=== PATIENT | male | born 1965 ===

== ENCOUNTER 2018-03-08 14:02 | Inpatient (IN) | payer MEDICAID, OTHER ==
[2018-03-08 14:11] VITALS: BMI 30.7
[2018-03-08] MEDS ORDERED: Sodium Chloride 0.9% 1,000 ML IV STA (14:47)
[2018-03-08] MEDS ORDERED: Vancomycin 1 GM 1 GM/250 ML BAG IVPB ONE (14:58)
[2018-03-08 15:02] LABS: BASO # 0.1 K/uL (0.0-0.2); BASO % 0.6 % (0.0-2.0); EOS # 0.2 K/uL (0.0-0.7); HEMOGLOBIN 14.7 g/dL (12.0-18.0); LYMPH # 2.3 K/uL (1.0-4.3); LYMPH % 19.1 % (20.0-40.0); MEAN CELL VOLUME 88.2 fL (80.0-94.0); MEAN CORPUSCULAR HEMOGLOBIN 29.2 pg (27.0-31.0); MEAN CORPUSCULAR HGB CONC 33.1 g/dL (33.0-37.0); MEAN PLATELET VOLUME 9.7 fL (7.2-11.7); MONO # 0.9 K/uL (0.0-0.8); MONO % 7.5 % (0.0-10.0); NEUT # 8.4 K/uL (1.8-7.0); NEUT % 70.8 % (50.0-75.0); RBC 5.02 Mil/uL (4.40-5.90); RED CELL DISTRIBUTION WIDTH 14.4 % (11.5-14.5); WHITE BLOOD COUNT 11.8 K/uL (4.8-10.8)
[2018-03-08 15:15] LABS: ALB/GLOB RATIO 1.2 (1.0-2.1); ALBUMIN 4.4 g/dL (3.5-5.0); ALT/SGPT 19 U/L (21-72); AST/SGOT 22 U/L (17-59); BLOOD UREA NITROGEN 20 mg/dL (9-20); CALCIUM 8.7 mg/dl (8.6-10.4); GFR NON-AFRICAN AMERICAN > 60
[2018-03-08] MEDS ORDERED: Iodixanol 320 MG/ML 100 ML BOTTLE IV ONE (16:32)
--- NOTE | 2018-03-08 18:12 | CT ---
Date of service: 03/08/2018 PROCEDURE: CT NECK WITH CONTRAST HISTORY: swelling/drainage behind right ear, neck COMPARISON: None available. TECHNIQUE: CT of the neck with intravenous contrast. Coronal and sagittal reformats generated. Radiodense marker localizes site of pathology related to right periareolar skin. Intravenous contrast dose: Visipaque 320, 100 cc Radiation dose: Total exam DLP = 401.71 mGy-cm. This CT exam was performed using one or more of the following dose reduction techniques: Automated exposure control, adjustment of the mA and/or kV according to patient size, and/or use of iterative reconstruction technique. FINDINGS: NASOPHARYNX: Unremarkable. SUPRAHYOID NECK: Dermal thickening is appreciated at the inferior right periareolar region with prominent subcutaneous reaction. Lucency of the dermis may indicate early ulcer formation with this lucency communicating with trace fluid in the subcutaneous fat superficial to the superficial portion right parotid gland and deep to the dermis. This may reflect residual abscess material approximately 2 cm x 4 mm. Otherwise unremarkable oropharynx, oral cavity, parapharyngeal space and retropharyngeal space. INFRAHYOID NECK: Unremarkable larynx, hypopharynx, and supraglottic space. Vocal cords intact. MASS: None. GLANDS: Parotid and submandibular glands unremarkable. Normal size thyroid gland, without nodule. LYMPH NODES: Moderate bilateral jugular digastric and right greater than left posterior triangle lymphadenopathy appreciated. Minimal right supraclavicular fossa lymphadenopathy. Lymphadenopathy is manifest not by grossly enlarged lymph nodes by numerous small lymph nodes with the largest measuring only 1.5 cm in the right periparotid space. CERVICAL SPINE: No fracture or focal lesion. VASCULAR STRUCTURES: Unremarkable. OTHER FINDINGS: None. IMPRESSION: Bilateral neck lymphadenopathy greater the right than left due to prominent inferior right periauricular cellulitis with small subdermal abscess extending into the dermis minimally.
--- NOTE | 2018-03-08 18:34 | C.PDOC ---
History Of Present Illness 52 year old male presents to the ED for evaluation of painful and swollen pimple behind right ear. Reports that he squeezed a small pimple behind his right ear 2 days ago but swelling increased. Notes it is painful to move neck. Denies any fever or chills. Time Seen by Provider: 03/08/18 14:33 Chief Complaint (Nursing): Abnormal Skin Integrity History Per: Patient History/Exam Limitations: no limitations Onset/Duration Of Symptoms: Days (2) Current Symptoms Are (Timing): Still Present Location Of Injury: Right: Neck (swollen and painful pimple ) Quality Of Symptoms: Painful, Swollen Past Medical History Reviewed: Historical Data, Nursing Documentation, Vital Signs Vital Signs: Last Vital Signs Temp 97.7 F 03/08/18 14:14 Pulse 74 03/08/18 16:55 Resp 18 03/08/18 16:55 BP 119/78 03/08/18 16:55 Pulse Ox 99 03/08/18 16:55 - Medical History PMH: No Chronic Diseases Surgical History: No Surg Hx Family History: States: No Known Family Hx - Social History Hx Alcohol Use: No Hx Substance Use: No - Immunization History Hx Tetanus Toxoid Vaccination: Yes Hx Influenza Vaccination: No Hx Pneumococcal Vaccination: No Review Of Systems Except As Marked, All Systems Reviewed And Found Negative. Constitutional: Negative for: Fever, Chills Skin: Positive for: Other (swollen and painful pimple behind right ear) Physical Exam - Physical Exam Appears: Non-toxic, No Acute Distress Skin: Warm, Dry, Other (dark ulceration to post auricular area (+) erythema (+) central induration extending to right lateral neck area and occipital area ) Head: Normacephalic Eye(s): bilateral: Normal Inspection, PERRL, EOMI Ear(s): Bilateral: Normal Nose: Normal Oral Mucosa: Moist Neck: Supple Chest: Symmetrical Cardiovascular: Rhythm Regular Respiratory: Normal Breath Sounds, No Rales, No Rhonchi, No Wheezing Neurological/Psych: Oriented x3, Normal Speech Gait: Steady ED Course And Treatment - Laboratory Results Result Diagrams: 03/08/18 14:56 03/08/18 14:56 O2 Sat by Pulse Oximetry: 99 (RA) Pulse Ox Interpretation: Normal - CT Scan/US CT soft tissue necl Other Rad Studies (CT/US): Read By Radiologist, Radiology Report Reviewed CT/US Interpretation: Accession No. : [id number]. Patient Name / ID : LOLIS BONNER / [id number]. Exam Date : 03/08/2018 17:46:40 ( Approved ). Study Comment : Sex / Age : M / 52Y. Creator : Bravo Azul MD. Dictator : Bravo Azul MD. Hot Braider : Pta : Bravo Azul MD. Approver2 : Report Date : 03/08/2018 18:08:03. My Comment : . Date of service: 03/08/2018. PROCEDURE: CT NECK WITH CONTRAST. HISTORY: swelling/drainage behind right ear, neck. COMPARISON: None available. TECHNIQUE: CT of the neck with intravenous contrast. Coronal and sagittal reformats generated. Radiodense marker localizes site of pathology related to right periareolar skin. Intravenous contrast dose: Visipaque 320, 100 cc. Radiation dose: Total exam DLP = 401.71 mGy-cm. This CT exam was performed using one or more of the following dose reduction techniques: Automated exposure control, adjustment of the mA and/or kV according to patient size, and/or use of iterative reconstruction technique. FINDINGS: NASOPHARYNX: Unremarkable. SUPRAHYOID NECK: Dermal thickening is appreciated at the inferior right periareolar region with prominent subcutaneous reaction. Lucency of the dermis may indicate early ulcer formation with this lucency communicating with trace fluid in the subcutaneous fat superficial to the superficial portion right parotid gland and deep to the dermis. This may reflect residual abscess material approximately 2 cm x 4 mm. Otherwise unremarkable oropharynx, oral cavity, parapharyngeal space and retropharyngeal space. INFRAHYOID NECK: Unremarkable larynx, hypopharynx, and supraglottic space. Vocal cords intact. MASS: None. GLANDS: Parotid and submandibular glands unremarkable. Normal size thyroid gland, without nodule. LYMPH NODES: Moderate bilateral jugular digastric and right greater than left posterior triangle lymphadenopathy appreciated. Minimal right supraclavicular fossa lymphadenopathy. Lymphadenopathy is manifest not by grossly enlarged lymph nodes by numerous small lymph nodes with the largest measuring only 1.5 cm in the right periparotid space. CERVICAL SPINE: No fracture or focal lesion. VASCULAR STRUCTURES: Unremarkable. OTHER FINDINGS: None. IMPRESSION: Bilateral neck lymphadenopathy greater the right than left due to prominent inferior right periauricular cellulitis with small subdermal abscess extending into the dermis minimally. Progress Note: Blood and wound cultures collected and sent to lab for analysis. Patient treated with Vancomycin. Case was d/w who accepted patient to his service for an admission. 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 - Scribe Statement The provider has reviewed the documentation as recorded by the Venus Wheeler All medical record entries made by the Adityaibaurelia were at my direction and personally dictated by me. I have reviewed the chart and agree that the record accurately reflects my personal performance of the history, physical exam, medical decision making, and the department course for this patient. I have also personally directed, reviewed, and agree with the discharge instructions and disposition. Decision To Admit - Pt Status Changed To: Hospital Disposition Of: Inpatient - Admit Certification Admit to Inpatient:: After my assessment, the patient will require hospitalization for at least two midnights. This is because of the severity of symptoms shown, intensity of services needed, and/or the medical risk in this patient being treated as an outpatient. - InPatient: Physician Admission Certification: I certify that this patient requires 2 or more midnights of care for the following reason:: will need IV antibiotics for more than 2 days - . Bed Request Type: Regular Admitting Physician: Nate Nunez Patient Diagnosis: Cellulitis and abscess of neck
--- NOTE | 2018-03-08 20:13 | CP.PCM.HP ---
<Layla Keys - Last Filed: 03/08/18 21:14> History of Present Illness - History of Present Illness History of Present Illness: PGY-1 Layla Keys D.O. H&P for Dr. Nunez's service (hospitalists): Patient is a 52 yo male with no known PMH who presents who a R facial abscess. Patient states that he noticed a fluid-filled bump at the angle of his R jaw on Saturday. He pricked it open with his nail. 2 days ago, he started feeling a burning sensation and squeezed the bump, which had grown significantly in size over the week. Beige odorless discharge came out. The patient describes significant pain, and he has been unable to lay down or touch the R side of his face since yesterday. Patient states this is the first time he has had anything like this. Last time he saw a doctor was in 2010. He denies fevers and chills. He denies LEES, trouble with chewing or swallowing, tooth pain, hearing changes or tinnitus. 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 Occasional alcohol use- 2-3 shots of whiskey every few months Former smoker- 25 pack years, quit 2006 Formerly used cocaine, quit in 2006 Denies IVDA PMD: none Present on Admission - Present on Admission Any Indicators Present on Admission: No History of DVT/PE: No History of Uncontrolled Diabetes: No Urinary Catheter: No Decubitus Ulcer Present: No History Surgical Site Infection Following: None Review of Systems - Constitutional Constitutional: absent: Chills, Fever, Headache - EENT Eyes: absent: Change in Vision Ears: absent: Decreased Hearing, Ear Discharge, Ear Pain, Tinnitus, Abnormal Hearing, Dizziness Nose/Mouth/Throat: As Per HPI, Facial Pain. absent: Nasal Congestion, Dental Pain, Mouth Lesions, Mouth Pain, Sore Throat, Throat Swelling - Cardiovascular Cardiovascular: absent: Chest Pain, Diaphoresis, Dyspnea - Respiratory Respiratory: absent: Cough, Dyspnea - Gastrointestinal Gastrointestinal: absent: Abdominal Pain, Constipation, Diarrhea, Nausea, Vomiting - Genitourinary Genitourinary: absent: Dysuria, Hematuria - Musculoskeletal Musculoskeletal: absent: Arthralgias, Numbness, Tingling - Integumentary Integumentary: As Per HPI, Erythema, Lesions, Swelling - Neurological Neurological: absent: Focal Weakness, Paresthesias, Tremor, Weakness - Psychiatric Psychiatric: absent: Anxiety, Depression - Endocrine Endocrine: absent: Fatigue, Palpitations - Hematologic/Lymphatic Hematologic: absent: Easy Bleeding, Easy Bruising, Lymphadenopathy Past Patient History - Infectious Disease Hx of Infectious Diseases: None - Past Medical History & Family History Past Medical History?: Yes Past Family History: Reviewed and not pertinent - Past Social History Smoking Status: Former Smoker (25 pk yrs, quit 2006) Chewing Tobacco Use: No Cigar Use: No Alcohol: Occasional Drugs: Cocaine (former- last use 2006) Home Situation {Lives}: Alone - PSYCHIATRIC Hx Substance Use: No - SURGICAL HISTORY Hx Surgeries: No - ANESTHESIA Hx Anesthesia: No Meds Allergies/Adverse Reactions: Allergies Allergy/AdvReac Type Severity Reaction Status Date / Time No Known Allergies Allergy Verified 03/08/18 14:32 Physical Exam - Constitutional Appears: Non-toxic, No Acute Distress - Head Exam Head Exam: ATRAUMATIC - Eye Exam Eye Exam: EOMI, Normal appearance, PERRL - ENT Exam ENT Exam: Mucous Membranes Moist Additional comments: preauricular abscess approx 3x3 cm fluctuant area with surround erythema and purulent discharge - Neck Exam Neck exam: Negative for: Lymphadenopathy, Tenderness - Respiratory Exam Respiratory Exam: Clear to Auscultation Bilateral, NORMAL BREATHING PATTERN. absent: Accessory Muscle Use, Respiratory Distress - Cardiovascular Exam Cardiovascular Exam: REGULAR RHYTHM, +S1, +S2. absent: Diastolic murmur, Systolic Murmur - GI/Abdominal Exam GI & Abdominal Exam: Normal Bowel Sounds, Soft. absent: Tenderness - Rectal Exam Rectal Exam: Deferred - Extremities Exam Extremities exam: Positive for: normal inspection, pedal pulses present. Negative for: pedal edema, tenderness - Back Exam Back exam: NORMAL INSPECTION - Neurological Exam Neurological exam: Alert, CN II-XII Intact, Oriented x3 - Psychiatric Exam Psychiatric exam: Normal Affect, Normal Mood - Skin Skin Exam: Dry, Intact, Normal Color, Warm - Additional Findings Additional findings: [address] in L axilla No neck or groin LNs palpable Results - Vital Signs Recent Vital Signs: Last Vital Signs Temp 97.7 F 03/08/18 14:14 Pulse 74 03/08/18 16:55 Resp 18 03/08/18 16:55 BP 119/78 03/08/18 16:55 Pulse Ox 99 03/08/18 18:54 - Labs Result Diagrams: 03/08/18 14:56 03/08/18 14:56 Labs: Laboratory Results - last 24 hr 03/08/18 03/08/18 14:56 14:56 WBC 11.8 H RBC 5.02 Hgb 14.7 Hct 44.3 MCV 88.2 MCH 29.2 MCHC 33.1 RDW 14.4 Plt Count 285 MPV 9.7 Neut % (Auto) 70.8 Lymph % (Auto) 19.1 L [place] % (Auto) 7.5 Eos % (Auto) 2.0 Baso % (Auto) 0.6 Neut # (Auto) 8.4 H Lymph # (Auto) 2.3 [place] # (Auto) 0.9 H Eos # (Auto) 0.2 Baso # (Auto) 0.1 Sodium 138 Potassium 3.8 Chloride 102 Carbon Dioxide 23 Anion Gap 17 BUN 20 Creatinine 1.0 Est GFR ( Amer) > 60 Est GFR (Non-Af Amer) > 60 Random Glucose 102 Calcium 8.7 Total Bilirubin 0.6 AST 22 ALT 19 L Alkaline Phosphatase 136 H Total Protein 8.0 Albumin 4.4 Globulin 3.6 Albumin/Globulin Ratio 1.2 Assessment & Plan - Assessment and Plan (Free Text) Assessment: Patient is a 52 yo male who no known PMH who presents with preauricular abscess of 1 week duration. Plan: Abscess, inferior preauricular, acute - Afebrile - WBC 11.8 - Wound Cx pending - Blood Cx pending - CT neck soft tissue: Bilateral neck lymphadenopathy greater the right than left due to prominent inferior right periauricular cellulitis with small subdermal abscess extending into the dermis minimally. - Tylenol 650 mg PO Q6H PRN - Toradol 15 mg IV Q6H PRN - Clindamycin 600 mg IV Q6H PRN - Surgery consulted ([facility]) Lymphadenopathy - CT neck soft tissue: Moderate bilateral jugular digastric and right greater than left posterior triangle lymphadenopathy appreciated. Minimal right supraclavicular fossa lymphadenopathy. Lymphadenopathy is manifest not by grossly enlarged lymph nodes by numerous small lymph nodes with the largest measuring only 1.5 cm in the right periparotid space. - CT chest/abd/pelvis pending Ppx: VTE: heparin 5000 units SC Q8H, SCDs GI: PTX 40 mg IV daily Diet: Heart healthy Code status: full code Case was discussed with attending, Dr. Nunez. <Nate Nunez - Last Filed: 03/09/18 07:14> Results - Vital Signs Recent Vital Signs: Last Vital Signs Temp 98.8 F 03/09/18 00:02 Pulse 76 03/09/18 00:02 Resp 20 03/09/18 00:02 BP 114/73 03/09/18 00:02 Pulse Ox 97 03/09/18 00:02 - Labs Result Diagrams: 03/08/18 14:56 03/08/18 14:56 Labs: Laboratory Results - last 24 hr 03/08/18 03/08/18 03/08/18 14:32 14:56 14:56 WBC 11.8 H RBC 5.02 Hgb 14.7 Hct 44.3 MCV 88.2 MCH 29.2 MCHC 33.1 RDW 14.4 Plt Count 285 MPV 9.7 Neut % (Auto) 70.8 Lymph % (Auto) 19.1 L [place] % (Auto) 7.5 Eos % (Auto) 2.0 Baso % (Auto) 0.6 Neut # (Auto) 8.4 H Lymph # (Auto) 2.3 [place] # (Auto) 0.9 H Eos # (Auto) 0.2 Baso # (Auto) 0.1 Sodium 138 Potassium 3.8 Chloride 102 Carbon Dioxide 23 Anion Gap 17 BUN 20 Creatinine 1.0 Est GFR ( Amer) > 60 Est GFR (Non-Af Amer) > 60 POC Glucose (mg/dL) 89 Random Glucose 102 Calcium 8.7 Total Bilirubin 0.6 AST 22 ALT 19 L Alkaline Phosphatase 136 H Total Protein 8.0 Albumin 4.4 Globulin 3.6 Albumin/Globulin Ratio 1.2 Attending/Attestation - Attestation I have personally seen and examined this patient.: Yes I have fully participated in the care of the patient.: Yes I have reviewed all pertinent clinical information: Yes Notes (Text): Assessment * Right subauricular abscess with induration * LN aris, b/l, left axilla Plan * Clindamycin iv, prn toradol to shrink * Surgery consult may need drainage once shrinks * W/u for lymphadenopathy to start with CT chest abd/pelvis * See orders for detail.
[2018-03-08 22:00] VITALS: RESP 20
--- NOTE | 2018-03-08 23:06 | CP.PCM.CON ---
<Thomas Giang - Last Filed: 03/08/18 23:04> History of Present Illness - History of Present Illness History of Present Illness: General Surgery Consult Re: R inferior periauricular abscess HPI: 52M presents with a R inferior periauricular abscess. Saturday he noticed a pimple at the angle of his R jaw. He picked it open. , after squeezing the lump several other times, he started feeling a burning sensation and the bump had grown in size. He began to express weathers odorless fluid. He reports it is now very painful, and he has been unable to lay down or touch the R side of his face since yesterday. This is the first time he has had anything like this. Denies fevers, chills, LEES, trouble with chewing or swallowing, tooth pain, hearing changes/tinnitus, eye pain, lacrimation, radiating jaw pain, foul taste in mouth. No other complaints. PMH: Denies PSH: Denies FH: DM in mother SH: Former smoker- 25 pack years, quit 2006. Rare EtOH, Formerly used cocaine, quit in 2006 All: NKDA Meds: Denies Review of Systems - Review of Systems All systems: reviewed and no additional remarkable complaints except (as per HPI ) Past Patient History - Infectious Disease Hx of Infectious Diseases: None - Past Medical History & Family History Past Medical History?: Yes - Past Social History Smoking Status: Former Smoker - CARDIAC Hx Cardiac Disorders: No - PULMONARY Hx Respiratory Disorders: No - NEUROLOGICAL Hx Neurological Disorder: No - HEENT Hx HEENT Problems: No - RENAL Hx Chronic Kidney Disease: No - ENDOCRINE/METABOLIC Hx Endocrine Disorders: No - HEMATOLOGICAL/ONCOLOGICAL Hx Blood Disorders: No - INTEGUMENTARY Hx Dermatological Problems: No - MUSCULOSKELETAL/RHEUMATOLOGICAL Hx Musculoskeletal Disorders: No Hx Falls: No - GASTROINTESTINAL Hx Gastrointestinal Disorders: No - GENITOURINARY/GYNECOLOGICAL Hx Genitourinary Disorders: No - PSYCHIATRIC Hx Psychophysiologic Disorder: No Hx Substance Use: Yes - SURGICAL HISTORY Hx Surgeries: No - ANESTHESIA Hx Anesthesia: No Meds Allergies/Adverse Reactions: Allergies Allergy/AdvReac Type Severity Reaction Status Date / Time No Known Allergies Allergy Verified 03/08/18 14:32 - Medications Medications: Current Medications Acetaminophen (Tylenol 325mg Tab) 650 mg PO Q6 PRN PRN Reason: Fever >100.4 F or mild pain Heparin Sodium (Porcine) (Heparin) 5,000 units SC Q8 [facility] Last Admin: 03/08/18 22:37 Dose: 5,000 units Clindamycin Phosphate 600 mg/ (Sodium Chloride) 54 mls @ 100 mls/hr IVPB Q6H [facility]; Protocol Last Admin: 03/08/18 22:30 Dose: 100 mls/hr Influenza Virus Vaccine (Fluzone Quad [id number]) 60 mcg IM .ONCE ONE Stop: 03/10/18 10:01 Ketorolac Tromethamine (Toradol) 15 mg IVP Q6 PRN PRN Reason: Pain, moderate (4-7) Pantoprazole Sodium (Protonix Inj) 40 mg IVP DAILY [facility] Pneumococcal Polyvalent Vaccine (Pneumovax 23 Vaccine) 0.5 ml IM .ONCE ONE Stop: 03/10/18 10:01 Physical Exam - Constitutional Appears: Non-toxic, No Acute Distress - Head Exam Head Exam: ATRAUMATIC, NORMOCEPHALIC - Eye Exam Eye Exam: EOMI. absent: Scleral icterus - ENT Exam ENT Exam: Mucous Membranes Moist Additional comments: R inferior periauricular abscess. draining, TTP. Erythema 6cm x 6cm - Neck Exam Neck exam: Negative for: Lymphadenopathy, Tenderness - Respiratory Exam Respiratory Exam: NORMAL BREATHING PATTERN. absent: Respiratory Distress - GI/Abdominal Exam GI & Abdominal Exam: Soft. absent: Distended, Tenderness - Rectal Exam Rectal Exam: Deferred - Extremities Exam Extremities exam: Positive for: normal capillary refill. Negative for: calf tenderness, pedal edema - Back Exam Back exam: absent: CVA tenderness (L), CVA tenderness (R) - Neurological Exam Neurological exam: Alert, Oriented x3 - Psychiatric Exam Psychiatric exam: Normal Affect, Normal Mood - Skin Skin Exam: Dry, Warm Results - Vital Signs Recent Vital Signs: Last Vital Signs Temp 98.5 F 03/08/18 22:00 Pulse 75 03/08/18 22:00 Resp 20 03/08/18 22:00 BP 113/77 03/08/18 22:00 Pulse Ox 96 03/08/18 22:00 - Labs Result Diagrams: 03/08/18 14:56 03/08/18 14:56 Labs: Laboratory Results - last 24 hr 12/15/18 12/15/18 12/15/18 14:32 14:56 14:56 WBC 11.8 H RBC 5.02 Hgb 14.7 Hct 44.3 MCV 88.2 MCH 29.2 MCHC 33.1 RDW 14.4 Plt Count 285 MPV 9.7 Neut % (Auto) 70.8 Lymph % (Auto) 19.1 L [place] % (Auto) 7.5 Eos % (Auto) 2.0 Baso % (Auto) 0.6 Neut # (Auto) 8.4 H Lymph # (Auto) 2.3 [place] # (Auto) 0.9 H Eos # (Auto) 0.2 Baso # (Auto) 0.1 Sodium 138 Potassium 3.8 Chloride 102 Carbon Dioxide 23 Anion Gap 17 BUN 20 Creatinine 1.0 Est GFR ( Amer) > 60 Est GFR (Non-Af Amer) > 60 POC Glucose (mg/dL) 89 Random Glucose 102 Calcium 8.7 Total Bilirubin 0.6 AST 22 ALT 19 L Alkaline Phosphatase 136 H Total Protein 8.0 Albumin 4.4 Globulin 3.6 Albumin/Globulin Ratio 1.2 - Imaging and Cardiology CT scan - head/neck Status: Image reviewed by me, Report reviewed by me Assessment & Plan - Assessment and Plan (Free Text) Assessment: 52M with R inferior periauricular abscess Plan: Continue Abx ENT consult D/W Dr. Imani Giang PGY4 <Neno Diallo - Last Filed: 03/09/18 21:51> Meds - Medications Medications: Current Medications Acetaminophen (Tylenol 325mg Tab) 650 mg PO Q6 PRN PRN Reason: Fever >100.4 F or mild pain Heparin Sodium (Porcine) (Heparin) 5,000 units SC Q12 [facility] Last Admin: 03/09/18 10:03 Dose: 5,000 units Clindamycin Phosphate 600 mg/ (Sodium Chloride) 54 mls @ 100 mls/hr IVPB Q6H [facility]; Protocol Last Admin: 03/09/18 21:48 Dose: 100 mls/hr Influenza Virus Vaccine (Fluzone Quad [id number]) 60 mcg IM .ONCE ONE Stop: 03/10/18 10:01 Ketorolac Tromethamine (Toradol) 15 mg IVP Q6 PRN PRN Reason: Pain, moderate (4-7) Lactobacillus Acidophilus (Bacid Acidophilus) 1 cap PO BID [facility] Last Admin: 03/09/18 17:41 Dose: 1 cap Pantoprazole Sodium (Protonix Inj) 40 mg IVP DAILY [facility] Last Admin: 03/09/18 10:03 Dose: 40 mg Pneumococcal Polyvalent Vaccine (Pneumovax 23 Vaccine) 0.5 ml IM .ONCE ONE Stop: 03/10/18 10:01 Results - Vital Signs Recent Vital Signs: Last Vital Signs Temp 98.2 F 03/09/18 15:00 Pulse 65 03/09/18 15:00 Resp 20 03/09/18 15:00 BP 114/71 03/09/18 15:00 Pulse Ox 96 03/09/18 15:00 - Labs Result Diagrams: 03/09/18 06:58 03/09/18 06:58 Labs: Laboratory Results - last 24 hr 03/08/18 03/09/18 03/09/18 14:32 06:58 06:58 WBC 8.7 RBC 4.39 L Hgb 13.1 Hct 39.1 MCV 89.1 MCH 29.9 MCHC 33.6 RDW 14.1 Plt Count 243 MPV 9.7 Neut % (Auto) 64.5 Lymph % (Auto) 21.9 [place] % (Auto) 9.9 Eos % (Auto) 2.8 Baso % (Auto) 0.9 Neut # (Auto) 5.6 Lymph # (Auto) 1.9 [place] # (Auto) 0.9 H Eos # (Auto) 0.2 Baso # (Auto) 0.1 Sodium 138 Potassium 4.2 Chloride 106 Carbon Dioxide 23 Anion Gap 13 BUN 26 H Creatinine 1.1 Est GFR ( Amer) > 60 Est GFR (Non-Af Amer) > 60 POC Glucose (mg/dL) 89 Random Glucose 102 Calcium 8.8 Phosphorus 3.9 Magnesium 2.2 Total Bilirubin 0.3 AST 27 ALT 21 Alkaline Phosphatase 106 Total Protein 6.6 Albumin 3.4 L D Globulin 3.2 Albumin/Globulin Ratio 1.1 Attending/Attestation - Attestation I have personally seen and examined this patient.: Yes I have fully participated in the care of the patient.: Yes I have reviewed all pertinent clinical information: Yes Notes (Text): Pt was seen and examined at bedside Agree with above note and assessment Pt with Right uper neck mass and Pain Neck: Preauricular cellulites present with mild tenderness Labs and Radiology reviewed Ass: Neck Cellulites with very small abscess Plan: Conservative management for now Abscess is self draining ID consult for IV antibiotics Hot compresses Local wound are Plan d.w pt in detail Risk and benefit explained in detail
[2018-03-09 07:13] LABS: BASO # 0.1 K/uL (0.0-0.2); BASO % 0.9 % (0.0-2.0); EOS # 0.2 K/uL (0.0-0.7); EOS % 2.8 % (0.0-4.0); HEMOGLOBIN 13.1 g/dL (12.0-18.0); LYMPH # 1.9 K/uL (1.0-4.3); LYMPH % 21.9 % (20.0-40.0); MEAN CELL VOLUME 89.1 fL (80.0-94.0); MEAN CORPUSCULAR HEMOGLOBIN 29.9 pg (27.0-31.0); MEAN CORPUSCULAR HGB CONC 33.6 g/dL (33.0-37.0); MEAN PLATELET VOLUME 9.7 fL (7.2-11.7); MONO # 0.9 K/uL (0.0-0.8); MONO % 9.9 % (0.0-10.0); NEUT # 5.6 K/uL (1.8-7.0); NEUT % 64.5 % (50.0-75.0); RBC 4.39 Mil/uL (4.40-5.90); RED CELL DISTRIBUTION WIDTH 14.1 % (11.5-14.5); WHITE BLOOD COUNT 8.7 K/uL (4.8-10.8)
[2018-03-09 07:23] LABS: ALB/GLOB RATIO 1.1 (1.0-2.1); ALBUMIN 3.4 g/dL (3.5-5.0); ALT/SGPT 21 U/L (21-72); AST/SGOT 27 U/L (17-59); BLOOD UREA NITROGEN 26 mg/dL (9-20); CALCIUM 8.8 mg/dl (8.6-10.4); GFR NON-AFRICAN AMERICAN > 60
[2018-03-09] MEDS: Lactobacillus Acidophilus 500 MU Cap PO SCH ×2 (10:03→17:41)
--- NOTE | 2018-03-09 13:13 | CP.PCM.PN ---
<Irene Rios - Last Filed: 03/09/18 16:34> Subjective - Date & Time of Evaluation Date of Evaluation: 03/09/18 Time of Evaluation: 16:34 - Subjective Subjective: Medicine Note for Hospitalist - Dr. Ze Cates Patient was seen and examined at bedside. Patient reports his pain has improved and the abscess has decreased in size. Abscess continues to expel on its own. Denied any fever, chills. Objective - Vital Signs/Intake and Output Vital Signs (last 24 hours): Temp Pulse Resp BP Pulse Ox 98.2 F 79 20 113/78 97 03/09/18 08:13 03/09/18 08:13 03/09/18 08:13 03/09/18 08:13 03/09/18 08:13 Intake and Output: 03/09/18 03/09/18 06:59 18:59 Intake Total 450 Balance 450 - Medications Medications: Current Medications Acetaminophen (Tylenol 325mg Tab) 650 mg PO Q6 PRN PRN Reason: Fever >100.4 F or mild pain Heparin Sodium (Porcine) (Heparin) 5,000 units SC Q12 [facility] Last Admin: 03/09/18 10:03 Dose: 5,000 units Clindamycin Phosphate 600 mg/ (Sodium Chloride) 54 mls @ 100 mls/hr IVPB Q6H [facility]; Protocol Last Admin: 03/09/18 08:02 Dose: 100 mls/hr Influenza Virus Vaccine (Fluzone Quad [id number]) 60 mcg IM .ONCE ONE Stop: 03/10/18 10:01 Ketorolac Tromethamine (Toradol) 15 mg IVP Q6 PRN PRN Reason: Pain, moderate (4-7) Lactobacillus Acidophilus (Bacid Acidophilus) 1 cap PO BID [facility] Last Admin: 03/09/18 10:03 Dose: 1 cap Pantoprazole Sodium (Protonix Inj) 40 mg IVP DAILY [facility] Last Admin: 03/09/18 10:03 Dose: 40 mg Pneumococcal Polyvalent Vaccine (Pneumovax 23 Vaccine) 0.5 ml IM .ONCE ONE Stop: 03/10/18 10:01 - Labs Labs: 03/09/18 06:58 03/09/18 06:58 - Additional Findings Additional findings: - Constitutional Appears: Non-toxic, No Acute Distress - Head Exam Head Exam: ATRAUMATIC - Eye Exam Eye Exam: EOMI, Normal appearance, PERRL - ENT Exam ENT Exam: Mucous Membranes Moist Additional comments: preauricular abscess approx 3x3 cm fluctuant area with surround erythema and purulent discharge - Neck Exam Neck exam: Negative for: Lymphadenopathy, Tenderness - Respiratory Exam Respiratory Exam: Clear to Auscultation Bilateral, NORMAL BREATHING PATTERN. absent: Accessory Muscle Use, Respiratory Distress - Cardiovascular Exam Cardiovascular Exam: REGULAR RHYTHM, +S1, +S2. absent: Diastolic murmur, Systolic Murmur - GI/Abdominal Exam GI & Abdominal Exam: Normal Bowel Sounds, Soft. absent: Tenderness - Rectal Exam Rectal Exam: Deferred - Extremities Exam Extremities exam: Positive for: normal inspection, pedal pulses present. [address] in L axilla Negative for: pedal edema, tenderness - Back Exam Back exam: NORMAL INSPECTION - Neurological Exam Neurological exam: Alert, CN II-XII Intact, Oriented x3 - Psychiatric Exam Psychiatric exam: Normal Affect, Normal Mood - Skin Skin Exam: Dry, Intact, Normal Color, Warm Assessment and Plan - Assessment and Plan (Free Text) Plan: Abscess, inferior preauricular - Surgery consulted (Imani) Imaging: - CT neck soft tissue: Bilateral neck lymphadenopathy greater the right than left due to prominent inferior right periauricular cellulitis with small subdermal abscess extending into the dermis minimally. Management: - Wound Cx pending, gram positive cocci - Blood Cx pending - Tylenol 650 mg PO Q6H PRN - Toradol 15 mg IV Q6H PRN - Clindamycin 600 mg IV Q6H PRN Lymphadenopathy - CT neck soft tissue: Moderate bilateral jugular digastric and right greater than left posterior triangle lymphadenopathy appreciated. Minimal right sup raclavicular fossa lymphadenopathy. Lymphadenopathy is manifest not by grossly enlarged lymph nodes by numerous small lymph nodes with the largest measuring only 1.5 cm in the right periparotid space. - CT chest/abd/pelvis pending, to be taken 03/10/18 due to recent contrast administration Prophylactic Measures VTE: heparin 5000 units SC Q8H, SCDs GI: PTX 40 mg IV daily Diet: Heart healthy Case discussed with Dr. Ze Cates DO, Irene Rios DO, PGY2 <Ze Cates - Last Filed: 03/09/18 20:20> Objective - Vital Signs/Intake and Output Vital Signs (last 24 hours): Temp Pulse Resp BP Pulse Ox 98.2 F 65 20 114/71 96 03/09/18 15:00 03/09/18 15:00 03/09/18 15:00 03/09/18 15:00 03/09/18 15:00 Intake and Output: 03/09/18 03/10/18 18:59 06:59 Intake Total 588 Balance 588 - Medications Medications: Current Medications Acetaminophen (Tylenol 325mg Tab) 650 mg PO Q6 PRN PRN Reason: Fever >100.4 F or mild pain Heparin Sodium (Porcine) (Heparin) 5,000 units SC Q12 [facility] Last Admin: 03/09/18 10:03 Dose: 5,000 units Clindamycin Phosphate 600 mg/ (Sodium Chloride) 54 mls @ 100 mls/hr IVPB Q6H [facility]; Protocol Last Admin: 03/09/18 14:34 Dose: 100 mls/hr Influenza Virus Vaccine (Fluzone Quad [id number]) 60 mcg IM .ONCE ONE Stop: 03/10/18 10:01 Ketorolac Tromethamine (Toradol) 15 mg IVP Q6 PRN PRN Reason: Pain, moderate (4-7) Lactobacillus Acidophilus (Bacid Acidophilus) 1 cap PO BID [facility] Last Admin: 03/09/18 17:41 Dose: 1 cap Pantoprazole Sodium (Protonix Inj) 40 mg IVP DAILY [facility] Last Admin: 03/09/18 10:03 Dose: 40 mg Pneumococcal Polyvalent Vaccine (Pneumovax 23 Vaccine) 0.5 ml IM .ONCE ONE Stop: 03/10/18 10:01 - Labs Labs: 03/09/18 06:58 03/09/18 06:58 Attending/Attestation - Attestation I have personally seen and examined this patient.: Yes I have fully participated in the care of the patient.: Yes I have reviewed all pertinent clinical information, including history, physical exam and plan: Yes Notes (Text): 03/09/18 20:17 Patient was seen and examined at 2:30 PM 03/09/18 Bed 350 B Care of this patient was gone over in detail with resident Dr. Rios. Please note Meropenem that was ordered by the surgical team was discontinued as preliminary cultures of the wound indicate Gram Positive organisms, Meropenem has poor Gram + coverage, and he is already on Clindamycin. Ze Cates D.O.
--- NOTE | 2018-03-09 16:05 | CP.PCM.CON ---
History of Present Illness - History of Present Illness History of Present Illness: 52 yo male presents who a R facial abscess which he picked at with his nails after it became large Started on IV Clinda pending cultures denies fever chills CT shows abscess/ lymphadenitis Cultures pending PMH: denies FH: DM SH: ex smoker no IVDA Review of Systems - Review of Systems All systems: reviewed and no additional remarkable complaints except - Constitutional Constitutional: As Per HPI - EENT Eyes: absent: As Per HPI, Blind Spots, Blurred Vision, Change in Vision, Decreased Night Vision, Diplopia, Discharge, Dry Eye, Exophthalmos, Floaters, Irritation, Itchy Eyes, Loss of Peripheral Vision, Pain, Photophobia, Requires Corrective Lenses, Sees Flashes, Spots in Vision, Tunnel Vision, Other Visual Disturbances, Loss of Vision, Other Ears: absent: As Per HPI, Decreased Hearing, Ear Discharge, Ear Pain, Tinnitus, Abnormal Hearing, Disequilibrium, Dizziness, Other Nose/Mouth/Throat: As Per HPI - Cardiovascular Cardiovascular: As Per HPI. absent: Acrocyanosis, Chest Pain, Chest Pain at Rest, Chest Pain with Activity, Claudication, Diaphoresis, Dyspnea, Dyspnea on Exertion, Edema, Irregular Heart Rhythm, Pain Radiating to Arm/Neck/Jaw, Leg Edema, Leg Ulcers, Lightheadedness, Orthopnea, Palpitations, Paroxysmal Nocturnal Dyspnea, Pedal Edema, Radiating Pain, Rapid Heart Rate, Slow Heart Rate, Syncope, Other - Respiratory Respiratory: absent: As Per HPI, Cough, Dyspnea, Hemoptysis, Dyspnea on Exertion, Wheezing, Snoring, Stridor, Pain on Inspiration, Chest Congestion, Excessive Mucous Production, Change in Mucous Color, Pain with Coughing, Other - Gastrointestinal Gastrointestinal: absent: As Per HPI, Abdominal Pain, Belching, Bloating, Change in Bowel Habits, Change in Stool Character, Coffee Ground Emesis, Constipation, Cramping, Diarrhea, Dyspepsia, Dysphagia, Early Satiety, Excessive Flatus, Fecal Incontinence, Heartburn, Hematemesis, Hematochezia, Loose Stools, Melena, Nausea, Odynophagia, Temesmus, Vomiting, Other - Genitourinary Genitourinary: absent: As Per HPI, Change in Urinary Stream, Difficulty Urinating, Dysuria, Flank Pain, Hematuria, Pyuria, Nocturia, Urinary Incontinence, Urinary Frequency, Urinary Hesitance, Urinary Urgency, Voiding Freq/Small Amts, Freq UTI, Hx Renal/Bladder Calculi, Hx /Renal Surgery, Bladde r Distension, Other - Musculoskeletal Musculoskeletal: absent: As Per HPI, Abnormal Gait, Arthralgias, Atrophy, Back Pain, Deformity, Joint Swelling, Limited Range of Motion, Loss of Height, Muscle Cramps, Muscle Weakness, Myalgias, Neck Pain, Numbness, Radiating Pain into Limb, Stiffness, Tingling, Other - Integumentary Integumentary: As Per HPI - Neurological Neurological: absent: As Per HPI, Abnormal Gait, Abnormal Hearing, Abnormal Movements, Abnormal Speech, Behavioral Changes, Burning Sensations, Confusion, Convulsions, Disequilibrium, Dizziness, Numbness, Focal Weakness, Frequent Falls, Headaches, Lack of Coordination, Loss of Vision, Memory Loss, Paresthesias, Radicular Pain, Restless Legs, Sensory Deficit, Syncope, Tingling, Tremor, Vertigo, Weakness, Other Visual Disturbances, Other Past Patient History - Infectious Disease Hx of Infectious Diseases: None - Past Medical History & Family History Past Medical History?: Yes - Past Social History Smoking Status: Former Smoker - CARDIAC Hx Cardiac Disorders: No - PULMONARY Hx Respiratory Disorders: No - NEUROLOGICAL Hx Neurological Disorder: No - HEENT Hx HEENT Problems: No - RENAL Hx Chronic Kidney Disease: No - ENDOCRINE/METABOLIC Hx Endocrine Disorders: No - HEMATOLOGICAL/ONCOLOGICAL Hx Blood Disorders: No - INTEGUMENTARY Hx Dermatological Problems: No - MUSCULOSKELETAL/RHEUMATOLOGICAL Hx Musculoskeletal Disorders: No Hx Falls: No - GASTROINTESTINAL Hx Gastrointestinal Disorders: No - GENITOURINARY/GYNECOLOGICAL Hx Genitourinary Disorders: No - PSYCHIATRIC Hx Psychophysiologic Disorder: No Hx Substance Use: Yes - SURGICAL HISTORY Hx Surgeries: No - ANESTHESIA Hx Anesthesia: No Meds Allergies/Adverse Reactions: Allergies Allergy/AdvReac Type Severity Reaction Status Date / Time No Known Allergies Allergy Verified 03/08/18 14:32 - Medications Medications: Current Medications Acetaminophen (Tylenol 325mg Tab) 650 mg PO Q6 PRN PRN Reason: Fever >100.4 F or mild pain Heparin Sodium (Porcine) (Heparin) 5,000 units SC Q12 [facility] Last Admin: 03/09/18 10:03 Dose: 5,000 units Clindamycin Phosphate 600 mg/ (Sodium Chloride) 54 mls @ 100 mls/hr IVPB Q6H [facility]; Protocol Last Admin: 03/09/18 14:34 Dose: 100 mls/hr Influenza Virus Vaccine (Fluzone Quad [id number]) 60 mcg IM .ONCE ONE Stop: 03/10/18 10:01 Ketorolac Tromethamine (Toradol) 15 mg IVP Q6 PRN PRN Reason: Pain, moderate (4-7) Lactobacillus Acidophilus (Bacid Acidophilus) 1 cap PO BID [facility] Last Admin: 03/09/18 10:03 Dose: 1 cap Pantoprazole Sodium (Protonix Inj) 40 mg IVP DAILY [facility] Last Admin: 03/09/18 10:03 Dose: 40 mg Pneumococcal Polyvalent Vaccine (Pneumovax 23 Vaccine) 0.5 ml IM .ONCE ONE Stop: 03/10/18 10:01 Physical Exam - Constitutional Appears: Non-toxic, Chronically Ill - Head Exam Head Exam: NORMOCEPHALIC Additional comments: swelling right periauricular area with drainage / lymphadenopathy - Eye Exam Eye Exam: absent: Scleral icterus Pupil Exam: NORMAL ACCOMODATION - ENT Exam ENT Exam: Mucous Membranes Dry - Neck Exam Neck exam: Positive for: Lymphadenopathy, Tenderness. Negative for: Normal Inspection - Respiratory Exam Respiratory Exam: Decreased Breath Sounds, Clear to Auscultation Bilateral - Cardiovascular Exam Cardiovascular Exam: REGULAR RHYTHM, +S1, +S2 - GI/Abdominal Exam GI & Abdominal Exam: Diminished Bowel Sounds, Soft. absent: Tenderness - Rectal Exam Rectal Exam: Deferred - Exam Exam: NORMAL INSPECTION - Extremities Exam Extremities exam: Positive for: normal inspection, pedal pulses present. Negative for: calf tenderness, pedal edema, tenderness - Back Exam Back exam: absent: CVA tenderness (L), CVA tenderness (R), paraspinal tenderness - Neurological Exam Neurological exam: Alert, CN II-XII Intact, Oriented x3, Reflexes Normal - Psychiatric Exam Psychiatric exam: Normal Mood Results - Vital Signs Recent Vital Signs: Last Vital Signs Temp 98.2 F 03/09/18 15:00 Pulse 65 03/09/18 15:00 Resp 20 03/09/18 15:00 BP 114/71 03/09/18 15:00 Pulse Ox 96 03/09/18 15:00 - Labs Result Diagrams: 03/10/18 06:32 03/10/18 06:32 Labs: Laboratory Results - last 24 hr 03/08/18 03/09/18 03/09/18 14:32 06:58 06:58 WBC 8.7 RBC 4.39 L Hgb 13.1 Hct 39.1 MCV 89.1 MCH 29.9 MCHC 33.6 RDW 14.1 Plt Count 243 MPV 9.7 Neut % (Auto) 64.5 Lymph % (Auto) 21.9 [place] % (Auto) 9.9 Eos % (Auto) 2.8 Baso % (Auto) 0.9 Neut # (Auto) 5.6 Lymph # (Auto) 1.9 [place] # (Auto) 0.9 H Eos # (Auto) 0.2 Baso # (Auto) 0.1 Sodium 138 Potassium 4.2 Chloride 106 Carbon Dioxide 23 Anion Gap 13 BUN 26 H Creatinine 1.1 Est GFR ( Amer) > 60 Est GFR (Non-Af Amer) > 60 POC Glucose (mg/dL) 89 Random Glucose 102 Calcium 8.8 Phosphorus 3.9 Magnesium 2.2 Total Bilirubin 0.3 AST 27 ALT 21 Alkaline Phosphatase 106 Total Protein 6.6 Albumin 3.4 L D Globulin 3.2 Albumin/Globulin Ratio 1.1 Assessment & Plan (1) Cellulitis and abscess of neck Status: Acute - Assessment and Plan (Free Text) Assessment: await cultures cont wound care surgery on board for possible debridement
[2018-03-09] MEDS ORDERED: Meropenem 500 MG in Sodium Chloride 0.9% 100 ML IVPB SCH (16:30)
--- NOTE | 2018-03-09 20:44 | CP.PCM.PN ---
<Jose Schaefer - Last Filed: 03/09/18 20:41> Subjective - Date & Time of Evaluation Date of Evaluation: 03/09/18 Time of Evaluation: 08:00 - Subjective Subjective: General Surgery progress Note for Dr. Diallo This patient was seen and examined this AM at bedside no acute events overnight. he reports that his face is feeling alot better. It is having mor drainage. No fevers chills chest pain or any new or concerning symptoms. Objective - Vital Signs/Intake and Output Vital Signs (last 24 hours): Temp Pulse Resp BP Pulse Ox 98.2 F 65 20 114/71 96 03/09/18 15:00 03/09/18 15:00 03/09/18 15:00 03/09/18 15:00 03/09/18 15:00 Intake and Output: 03/09/18 03/10/18 18:59 06:59 Intake Total 588 Balance 588 - Medications Medications: Current Medications Acetaminophen (Tylenol 325mg Tab) 650 mg PO Q6 PRN PRN Reason: Fever >100.4 F or mild pain Heparin Sodium (Porcine) (Heparin) 5,000 units SC Q12 [facility] Last Admin: 03/09/18 10:03 Dose: 5,000 units Clindamycin Phosphate 600 mg/ (Sodium Chloride) 54 mls @ 100 mls/hr IVPB Q6H [facility]; Protocol Last Admin: 03/09/18 14:34 Dose: 100 mls/hr Influenza Virus Vaccine (Fluzone Quad [id number]) 60 mcg IM .ONCE ONE Stop: 03/10/18 10:01 Ketorolac Tromethamine (Toradol) 15 mg IVP Q6 PRN PRN Reason: Pain, moderate (4-7) Lactobacillus Acidophilus (Bacid Acidophilus) 1 cap PO BID [facility] Last Admin: 03/09/18 17:41 Dose: 1 cap Pantoprazole Sodium (Protonix Inj) 40 mg IVP DAILY [facility] Last Admin: 03/09/18 10:03 Dose: 40 mg Pneumococcal Polyvalent Vaccine (Pneumovax 23 Vaccine) 0.5 ml IM .ONCE ONE Stop: 03/10/18 10:01 - Labs Labs: 03/09/18 06:58 03/09/18 06:58 - Constitutional Appears: Non-toxic, No Acute Distress - Head Exam Head Exam: ATRAUMATIC Additional comments: Right cheek abscess draining purulent fluid - Eye Exam Eye Exam: EOMI - ENT Exam ENT Exam: Mucous Membranes Moist - Respiratory Exam Respiratory Exam: NORMAL BREATHING PATTERN - Cardiovascular Exam Cardiovascular Exam: +S1, +S2 - GI/Abdominal Exam GI & Abdominal Exam: Soft. absent: Guarding, Rigid, Tenderness - Neurological Exam Neurological Exam: Alert, Awake - Psychiatric Exam Psychiatric exam: Normal Affect, Normal Mood - Skin Skin Exam: Dry, Intact Assessment and Plan - Assessment and Plan (Free Text) Assessment: 52M with right facial abscess F/U ENT recs F/U ID recs IV abx Warm compresses D/W Dr. Imani Schaefer PGY3 <Neno Diallo B - Last Filed: 03/09/18 22:47> Objective - Vital Signs/Intake and Output Vital Signs (last 24 hours): Temp Pulse Resp BP Pulse Ox 98.2 F 65 20 114/71 96 03/09/18 15:00 03/09/18 15:00 03/09/18 15:00 03/09/18 15:00 03/09/18 15:00 Intake and Output: 03/09/18 03/10/18 18:59 06:59 Intake Total 588 Balance 588 - Medications Medications: Current Medications Acetaminophen (Tylenol 325mg Tab) 650 mg PO Q6 PRN PRN Reason: Fever >100.4 F or mild pain Heparin Sodium (Porcine) (Heparin) 5,000 units SC Q12 [facility] Last Admin: 03/09/18 21:49 Dose: 5,000 units Clindamycin Phosphate 600 mg/ (Sodium Chloride) 54 mls @ 100 mls/hr IVPB Q6H [facility]; Protocol Last Admin: 03/09/18 21:48 Dose: 100 mls/hr Influenza Virus Vaccine (Fluzone Quad [id number]) 60 mcg IM .ONCE ONE Stop: 03/10/18 10:01 Ketorolac Tromethamine (Toradol) 15 mg IVP Q6 PRN PRN Reason: Pain, moderate (4-7) Lactobacillus Acidophilus (Bacid Acidophilus) 1 cap PO BID [facility] Last Admin: 03/09/18 17:41 Dose: 1 cap Pantoprazole Sodium (Protonix Inj) 40 mg IVP DAILY [facility] Last Admin: 03/09/18 10:03 Dose: 40 mg Pneumococcal Polyvalent Vaccine (Pneumovax 23 Vaccine) 0.5 ml IM .ONCE ONE Stop: 03/10/18 10:01 - Labs Labs: 03/09/18 06:58 03/09/18 06:58 Attending/Attestation - Attestation I have personally seen and examined this patient.: Yes I have fully participated in the care of the patient.: Yes I have reviewed all pertinent clinical information, including history, physical exam and plan: Yes Notes (Text): Pt was seen and examined at bedside Agree with above noter and assessment Pt is improving clinically Local wound care DC plan C/w current mx f.u as out pt Plan d.w pt's family in detail
[2018-03-10] MEDS: Meropenem 500 MG in Sodium Chloride 0.9% 100 ML IVPB SCH ×2 (06:01→14:22)
[2018-03-10 06:39] LABS: BASO # 0.1 K/uL (0.0-0.2); BASO % 0.7 % (0.0-2.0); EOS # 0.3 K/uL (0.0-0.7); EOS % 3.7 % (0.0-4.0); HEMOGLOBIN 13.6 g/dL (12.0-18.0); LYMPH # 2.1 K/uL (1.0-4.3); LYMPH % 26.6 % (20.0-40.0); MEAN CELL VOLUME 89.2 fL (80.0-94.0); MEAN CORPUSCULAR HGB CONC 33.7 g/dL (33.0-37.0); MEAN PLATELET VOLUME 9.6 fL (7.2-11.7); MONO # 0.6 K/uL (0.0-0.8); MONO % 7.7 % (0.0-10.0); NEUT # 4.8 K/uL (1.8-7.0); NEUT % 61.3 % (50.0-75.0); RBC 4.53 Mil/uL (4.40-5.90); RED CELL DISTRIBUTION WIDTH 13.8 % (11.5-14.5); WHITE BLOOD COUNT 7.9 K/uL (4.8-10.8)
[2018-03-10 07:03] LABS: ALB/GLOB RATIO 1.2 (1.0-2.1); ALBUMIN 3.6 g/dL (3.5-5.0); ALT/SGPT 21 U/L (21-72); AST/SGOT 18 U/L (17-59); BLOOD UREA NITROGEN 17 mg/dL (9-20); CALCIUM 8.2 mg/dl (8.6-10.4); GFR NON-AFRICAN AMERICAN > 60
[2018-03-10] MEDS ORDERED: Iodixanol 320 MG/ML 100 ML BOTTLE IV ONE (08:21)
--- NOTE | 2018-03-10 08:27 | CP.PCM.PN ---
Subjective - Date & Time of Evaluation Date of Evaluation: 03/10/18 Time of Evaluation: 08:24 - Subjective Subjective: General Surgery - Dr. Diallo Pt S&EChristina ELLINGTON. Pt states his pain is improving. He continues to have drainage from the naseem-auricular abscess. Dressing changed. He denies any Fevers/Chills, SOb /Chest pains, Nausea or vomiting. Objective - Vital Signs/Intake and Output Vital Signs (last 24 hours): Temp Pulse Resp BP Pulse Ox 98.3 F 70 20 106/65 96 03/10/18 07:39 03/10/18 07:39 03/10/18 07:39 03/10/18 07:39 03/10/18 07:39 Intake and Output: 03/10/18 03/10/18 06:59 18:59 Intake Total 350 504 Output Total 700 Balance -350 504 - Medications Medications: Current Medications Acetaminophen (Tylenol 325mg Tab) 650 mg PO Q6 PRN PRN Reason: Fever >100.4 F or mild pain Heparin Sodium (Porcine) (Heparin) 5,000 units SC Q12 [facility] Last Admin: 03/09/18 21:49 Dose: 5,000 units Clindamycin Phosphate 600 mg/ (Sodium Chloride) 54 mls @ 100 mls/hr IVPB Q6H [facility]; Protocol Last Admin: 03/10/18 08:06 Dose: 100 mls/hr Meropenem 500 mg/ Sodium (Chloride) 100 mls @ 100 mls/hr IVPB Q8H [facility]; Protocol Last Admin: 03/10/18 06:01 Dose: 100 mls/hr Influenza Virus Vaccine (Fluzone Quad [id number]) 60 mcg IM .ONCE ONE Stop: 03/10/18 10:01 Ketorolac Tromethamine (Toradol) 15 mg IVP Q6 PRN PRN Reason: Pain, moderate (4-7) Lactobacillus Acidophilus (Bacid Acidophilus) 1 cap PO BID [facility] Last Admin: 03/09/18 17:41 Dose: 1 cap Pantoprazole Sodium (Protonix Inj) 40 mg IVP DAILY [facility] Last Admin: 03/09/18 10:03 Dose: 40 mg Pneumococcal Polyvalent Vaccine (Pneumovax 23 Vaccine) 0.5 ml IM .ONCE ONE Stop: 03/10/18 10:01 - Labs Labs: 03/10/18 06:32 03/10/18 06:32 - Constitutional Appears: No Acute Distress - Head Exam Head Exam: ATRAUMATIC, NORMAL INSPECTION, NORMOCEPHALIC - ENT Exam Additional comments: Small Right periauricular abscess with purulent drainage and induration, improving - Respiratory Exam Respiratory Exam: NORMAL BREATHING PATTERN. absent: Respiratory Distress - Cardiovascular Exam Cardiovascular Exam: REGULAR RHYTHM - Neurological Exam Neurological Exam: Alert, Awake - Psychiatric Exam Psychiatric exam: Normal Affect, Normal Mood - Skin Skin Exam: Dry, Normal Color, Warm Assessment and Plan - Assessment and Plan (Free Text) Assessment: 52 yo M w/ R periauricular abscess -Abscess continues to drain and appears to be improving -Continue IV Abx -Continue pain control prn -F/U final Cx -F/U ENT and ID reccs. -No surgical intervention needed at this time Lexx Lewis PGy4
[2018-03-10] MEDS: Lactobacillus Acidophilus 500 MU Cap PO SCH ×2 (09:29→17:36)
[2018-03-10] MEDS ORDERED: Influenza Vaccine 60 MCG/0.5 ML SYR (3 yr & up) IM ONE (10:00)
[2018-03-10] MEDS ORDERED: Pneumococcal 23-Valent Vaccine IM ONE (10:00)
--- NOTE | 2018-03-10 11:35 | CP.PCM.PN ---
Subjective - Date & Time of Evaluation Date of Evaluation: 03/10/18 Time of Evaluation: 09:00 - Subjective Subjective: cultures + MSSA Objective - Vital Signs/Intake and Output Vital Signs (last 24 hours): Temp Pulse Resp BP Pulse Ox 98.3 F 70 20 106/65 96 03/10/18 07:39 03/10/18 07:39 03/10/18 07:39 03/10/18 07:39 03/10/18 07:39 Intake and Output: 03/10/18 03/10/18 06:59 18:59 Intake Total 350 504 Output Total 700 Balance -350 504 - Medications Medications: Current Medications Acetaminophen (Tylenol 325mg Tab) 650 mg PO Q6 PRN PRN Reason: Fever >100.4 F or mild pain Heparin Sodium (Porcine) (Heparin) 5,000 units SC Q12 [facility] Last Admin: 03/10/18 09:29 Dose: 5,000 units Clindamycin Phosphate 600 mg/ (Sodium Chloride) 54 mls @ 100 mls/hr IVPB Q6H [facility]; Protocol Last Admin: 03/10/18 08:06 Dose: 100 mls/hr Meropenem 500 mg/ Sodium (Chloride) 100 mls @ 100 mls/hr IVPB Q8H [facility]; Protocol Last Admin: 03/10/18 06:01 Dose: 100 mls/hr Ketorolac Tromethamine (Toradol) 15 mg IVP Q6 PRN PRN Reason: Pain, moderate (4-7) Lactobacillus Acidophilus (Bacid Acidophilus) 1 cap PO BID [facility] Last Admin: 03/10/18 09:29 Dose: 1 cap Pantoprazole Sodium (Protonix Inj) 40 mg IVP DAILY [facility] Last Admin: 03/10/18 09:26 Dose: 40 mg - Labs Labs: 03/10/18 06:32 03/10/18 06:32 - Constitutional Appears: Non-toxic, Chronically Ill - Head Exam Head Exam: NORMOCEPHALIC - Eye Exam Eye Exam: absent: Scleral icterus - ENT Exam ENT Exam: Mucous Membranes Dry - Neck Exam Neck Exam: Lymphadenopathy, Tenderness. absent: Normal Inspection Additional comments: swelling drainage right periauricular area - Respiratory Exam Respiratory Exam: Decreased Breath Sounds - Cardiovascular Exam Cardiovascular Exam: REGULAR RHYTHM - GI/Abdominal Exam GI & Abdominal Exam: Distended, Soft - Rectal Exam Rectal Exam: Deferred - Exam Exam: NORMAL INSPECTION - Extremities Exam Extremities Exam: absent: Pedal Edema - Back Exam Back Exam: absent: CVA tenderness (L), CVA tenderness (R) Assessment and Plan (1) Cellulitis and abscess of neck Status: Acute - Assessment and Plan (Free Text) Assessment: MSSA from woiund resistant to clinda consider IV Nafcillin or ancef
--- NOTE | 2018-03-10 12:26 | CT ---
Date of service: 03/10/2018 PROCEDURE: CT Chest, Abdomen and Pelvis with intravenous contrast HISTORY: eval for lymph nodes COMPARISON: None available. TECHNIQUE: IV dose administered: 100 cc of Visipaque Radiation dose: Total exam DLP = 1135.85 mGy-cm. This CT exam was performed using one or more of the following dose reduction techniques: Automated exposure control, adjustment of the mA and/or kV according to patient size, and/or use of iterative reconstruction technique. FINDINGS: CT CHEST WITH CONTRAST: LUNGS: Clear. No nodule, mass or consolidation. MEDIASTINUM: Unremarkable. Normal caliber aorta and pulmonary arterial trunk. No aortic dissection. Normal size heart. LYMPH NODES: Unremarkable. PLEURA: Unremarkable. No pneumothorax. No pleural fluid. BONES: Unremarkable. OTHER FINDINGS: None. CT ABDOMEN AND PELVIS: LIVER: Unremarkable. No gross lesion or ductal dilatation. GALLBLADDER AND BILE DUCTS: Unremarkable. PANCREAS: Unremarkable. No gross lesion or ductal dilatation. SPLEEN: Unremarkable. ADRENALS: Unremarkable. No mass. KIDNEYS AND URETERS: Unremarkable. No hydronephrosis. No solid mass. VASCULATURE: No aortic atherosclerotic calcification or mural plaque present. Unremarkable. No aortic aneurysm. BOWEL: Unremarkable. No obstruction. No gross mural thickening. APPENDIX: Normal appendix. PERITONEUM: Unremarkable. No free fluid. No free air. LYMPH NODES: Unremarkable. No enlarged lymph nodes. BLADDER: Unremarkable. REPRODUCTIVE: Unremarkable. BONES: No acute fracture. OTHER FINDINGS: None. IMPRESSION: No acute findings. No evidence of adenopathy
--- NOTE | 2018-03-10 15:49 | CP.PCM.PN ---
Subjective - Date & Time of Evaluation Date of Evaluation: 03/10/18 Time of Evaluation: 16:04 - Subjective Subjective: PGY-[address] Mascorro Patient seen and examined at bedside. No acute events overnight per nursing. Patient states he is feeling better and has decreased pain around the abscess. Patient also states it is getting smaller. Denies any fevers, chills, or difficulty breathing. Surgery cleaned dressings this AM - no plans for I and D at present. I spoke with Dr. Lawler about changing to oral ABx and he suggests Keflex QID a PO option. No other symptoms including chest pain, nausea, headache, dizziness, radiating pain. Objective - Vital Signs/Intake and Output Vital Signs (last 24 hours): Temp Pulse Resp BP Pulse Ox 98.3 F 70 20 106/65 96 03/10/18 07:39 03/10/18 07:39 03/10/18 07:39 03/10/18 07:39 03/10/18 07:39 Intake and Output: 03/10/18 03/10/18 06:59 18:59 Intake Total 350 1054 Output Total 700 Balance -350 1054 - Medications Medications: Current Medications Acetaminophen (Tylenol 325mg Tab) 650 mg PO Q6 PRN PRN Reason: Fever >100.4 F or mild pain Cephalexin Monohydrate (Keflex) 500 mg PO Q6H [facility]; Protocol Stop: 03/17/18 23:59 Heparin Sodium (Porcine) (Heparin) 5,000 units SC Q12 [facility] Last Admin: 03/10/18 09:29 Dose: 5,000 units Ketorolac Tromethamine (Toradol) 15 mg IVP Q6 PRN PRN Reason: Pain, moderate (4-7) Lactobacillus Acidophilus (Bacid Acidophilus) 1 cap PO BID [facility] Last Admin: 03/10/18 09:29 Dose: 1 cap Pantoprazole Sodium (Protonix Inj) 40 mg IVP DAILY [facility] Last Admin: 03/10/18 09:26 Dose: 40 mg - Labs Labs: 03/10/18 06:32 03/10/18 06:32 - Constitutional Appears: Non-toxic, No Acute Distress - Head Exam Head Exam: NORMAL INSPECTION Additional comments: Right-sided facial abcess draining prurulent fluid. Patient states decreased in size. Dressings CDI. - Eye Exam Eye Exam: EOMI - ENT Exam ENT Exam: Mucous Membranes Moist - Respiratory Exam Respiratory Exam: Clear to Ausculation Bilateral, NORMAL BREATHING PATTERN. absent: Rales, Rhonchi, Wheezes - Cardiovascular Exam Cardiovascular Exam: REGULAR RHYTHM, +S1, +S2 - GI/Abdominal Exam GI & Abdominal Exam: Soft, Normal Bowel Sounds. absent: Tenderness - Extremities Exam Extremities Exam: Normal Inspection. absent: Pedal Edema, Tenderness - Neurological Exam Neurological Exam: Alert, Awake, CN II-XII Intact, Oriented x3 - Psychiatric Exam Psychiatric exam: Normal Affect, Normal Mood - Skin Skin Exam: Dry, Normal Color Assessment and Plan - Assessment and Plan (Free Text) Assessment: Abscess, inferior preauricular - Surgery consulted (Imani) Imaging: - CT neck soft tissue: Bilateral neck lymphadenopathy greater the right than left due to prominent inferior right periauricular cellulitis with small subdermal abscess extending into the dermis minimally. Management: - Wound Cx - Staph MSSA - Blood Cx - NG @ 24 hours - Tylenol 650 mg PO Q6H PRN - Toradol 15 mg IV Q6H PRN - Abx per ID, Dr. Lawler. Help appreciated. - Keflex 500 mg PO QID x 7 days - -Per Dr. Lawler - Okay to dc Meropenem - started on Keflex 500 TID x 7 days (last day 03/17) - -Cipro is not great for more serious infections, because you can actually develop resistance during the treatment course Lymphadenopathy - CT neck soft tissue 03/09 - Moderate bilateral jugular digastric and right greater than left posterior triangle lymphadenopathy appreciated. Minimal right supraclavicular fossa lymphadenopathy. Lymphadenopathy is manifest not by grossly enlarged lymph nodes by numerous small lymph nodes with the largest measuring only 1.5 cm in the right periparotid space. - CT chest/abd/pelvis 03/10 - No acute findings. No evidence of adenopathy. Prophylactic Measures VTE: heparin 5000 units SC Q8H, SCDs GI: PTX 40 mg IV daily Diet: Heart healthy Case discussed with Dr. Ludwin Mace, PGY-1
[2018-03-10 19:35] LABS: URINE BILIRUBIN NEGATIVE (NEGATIVE); URINE BLOOD NEGATIVE (NEGATIVE); URINE CLARITY Clear (Clear); URINE COLOR Straw (YELLOW); URINE GLUCOSE (UA) NORMAL (Normal); URINE LEUKOCYTE ESTERASE NEG Leu/uL (Negative); URINE PROTEIN NEGATIVE (NEGATIVE); URINE UROBILINOGEN NORMAL mg/dL (0.2-1.0)
[2018-03-11 07:01] LABS: BASO # 0.1 K/uL (0.0-0.2); BASO % 0.7 % (0.0-2.0); EOS # 0.4 K/uL (0.0-0.7); EOS % 4.8 % (0.0-4.0); HEMOGLOBIN 14.3 g/dL (12.0-18.0); LYMPH # 1.7 K/uL (1.0-4.3); LYMPH % 21.7 % (20.0-40.0); MEAN CELL VOLUME 87.9 fL (80.0-94.0); MEAN CORPUSCULAR HEMOGLOBIN 29.9 pg (27.0-31.0); MEAN PLATELET VOLUME 9.3 fL (7.2-11.7); MONO # 0.5 K/uL (0.0-0.8); MONO % 6.8 % (0.0-10.0); NEUT # 5.1 K/uL (1.8-7.0); RBC 4.79 Mil/uL (4.40-5.90); RED CELL DISTRIBUTION WIDTH 14.1 % (11.5-14.5); WHITE BLOOD COUNT 7.8 K/uL (4.8-10.8)
[2018-03-11 07:28] LABS: ALB/GLOB RATIO 1.1 (1.0-2.1); ALBUMIN 3.7 g/dL (3.5-5.0); ALT/SGPT 24 U/L (21-72); AST/SGOT 21 U/L (17-59); BLOOD UREA NITROGEN 14 mg/dL (9-20); CALCIUM 8.7 mg/dl (8.6-10.4); GFR NON-AFRICAN AMERICAN > 60
--- NOTE | 2018-03-11 08:19 | CP.PCM.PN ---
Subjective - Date & Time of Evaluation Date of Evaluation: 03/11/18 Time of Evaluation: 08:16 - Subjective Subjective: General Surgery - Dr. Mac Pt S&E. RAKEL. Pt reports decreased discomfort at the site of the Right periauricular abscess. There has been continued drainage from the site. Pt states that he has requested warm compresses but has not received them, will DW nursing and adjust orders. He denies any Fevers/Chills, Nausea/vomiting, SOb or chest pain. Antibiotics were adjusted yesterday per ID and tailored to final culture results. Objective - Vital Signs/Intake and Output Vital Signs (last 24 hours): Temp Pulse Resp BP Pulse Ox 98.2 F 79 20 107/76 94 L 03/11/18 00:00 03/11/18 00:00 03/11/18 00:00 03/11/18 00:00 03/11/18 00:00 Intake and Output: 03/11/18 03/11/18 06:59 18:59 Intake Total 400 180 Balance 400 180 - Medications Medications: Current Medications Acetaminophen (Tylenol 325mg Tab) 650 mg PO Q6 PRN PRN Reason: Fever >100.4 F or mild pain Cephalexin Monohydrate (Keflex) 500 mg PO Q6H [facility]; Protocol Stop: 03/17/18 23:59 Last Admin: 03/11/18 04:21 Dose: 500 mg Heparin Sodium (Porcine) (Heparin) 5,000 units SC Q12 [facility] Last Admin: 03/10/18 21:57 Dose: 5,000 units Lactobacillus Acidophilus (Bacid Acidophilus) 1 cap PO BID [facility] Last Admin: 03/10/18 17:36 Dose: 1 cap Pantoprazole Sodium (Protonix Inj) 40 mg IVP DAILY [facility] Last Admin: 03/10/18 09:26 Dose: 40 mg - Labs Labs: 03/11/18 06:48 03/11/18 06:48 - Constitutional Appears: No Acute Distress - Head Exam Head Exam: ATRAUMATIC Additional comments: Right periauricular abscess, open and draining purulent fluid, induration decreased from prior exam; dressing changed - Eye Exam Eye Exam: Normal appearance - Respiratory Exam Respiratory Exam: NORMAL BREATHING PATTERN. absent: Respiratory Distress - Cardiovascular Exam Cardiovascular Exam: REGULAR RHYTHM - Neurological Exam Neurological Exam: Alert, Oriented x3 - Psychiatric Exam Psychiatric exam: Normal Affect, Normal Mood - Skin Skin Exam: Dry, Normal Color Assessment and Plan - Assessment and Plan (Free Text) Assessment: 52 yo M w/ R periauricular abscess -Abscess draining and induration improved -Continue IV Abx as per ID -Provide warm compress Q4H -No surgical intervention needed at this time Dw Dr Imani Lewis PGy4
[2018-03-11 08:36] VITALS: O2SAT 97
[2018-03-11] MEDS: Lactobacillus Acidophilus 500 MU Cap PO SCH ×2 (09:50→17:27)
--- NOTE | 2018-03-11 11:10 | CP.PCM.PN ---
Subjective - Date & Time of Evaluation Date of Evaluation: 03/11/18 Time of Evaluation: 08:00 - Subjective Subjective: less drainage less swelling MSSA + Objective - Vital Signs/Intake and Output Vital Signs (last 24 hours): Temp Pulse Resp BP Pulse Ox 98.1 F 67 20 97/61 L 97 03/11/18 08:33 03/11/18 08:33 03/11/18 08:33 03/11/18 08:33 03/11/18 08:33 Intake and Output: 03/11/18 03/11/18 06:59 18:59 Intake Total 400 180 Balance 400 180 - Medications Medications: Current Medications Acetaminophen (Tylenol 325mg Tab) 650 mg PO Q6 PRN PRN Reason: Fever >100.4 F or mild pain Cephalexin Monohydrate (Keflex) 500 mg PO Q6H [facility]; Protocol Stop: 03/17/18 23:59 Last Admin: 03/11/18 09:50 Dose: 500 mg Heparin Sodium (Porcine) (Heparin) 5,000 units SC Q12 [facility] Last Admin: 03/11/18 09:50 Dose: 5,000 units Lactobacillus Acidophilus (Bacid Acidophilus) 1 cap PO BID [facility] Last Admin: 03/11/18 09:50 Dose: 1 cap Pantoprazole Sodium (Protonix Inj) 40 mg IVP DAILY [facility] Last Admin: 03/11/18 09:49 Dose: 40 mg - Labs Labs: 03/11/18 06:48 03/11/18 06:48 - Constitutional Appears: Non-toxic - Head Exam Head Exam: NORMOCEPHALIC - Eye Exam Eye Exam: absent: Scleral icterus - ENT Exam ENT Exam: Mucous Membranes Dry - Neck Exam Neck Exam: Lymphadenopathy, Tenderness Additional comments: swelling right periauricular area - Respiratory Exam Respiratory Exam: Decreased Breath Sounds, Clear to Ausculation Bilateral - Cardiovascular Exam Cardiovascular Exam: REGULAR RHYTHM - GI/Abdominal Exam GI & Abdominal Exam: Distended, Soft - Rectal Exam Rectal Exam: Deferred - Exam Exam: NORMAL INSPECTION - Extremities Exam Extremities Exam: absent: Pedal Edema - Back Exam Back Exam: absent: CVA tenderness (L), CVA tenderness (R) - Neurological Exam Neurological Exam: Alert, Awake, Oriented x3 Assessment and Plan (1) Cellulitis and abscess of neck Status: Acute - Assessment and Plan (Free Text) Assessment: cont iv then po rx d/c on PO Keflex follow up in clinic
[2018-03-11 16:30] VITALS: BP 106/64; PULSE 79; TEMP 97.4
--- NOTE | 2018-03-11 16:43 | CP.PCM.PN ---
Subjective - Date & Time of Evaluation Date of Evaluation: 03/11/18 Time of Evaluation: 16:35 - Subjective Subjective: PGY-[address] Mascorro Patient was admitted to [facility] for management of a R-sided facial abscess. [place] scan ordered to evaluate for lympadenopathy was negative. While in hospital, patient was treated on Meropenem. Over a couple of days, abscess showed significant improvement. Surgery was consulted and helped with wound care on this case, however patient did not require an I and D. Continued with daily dressing changes. Patient never spiked any fevers or showed any signs of SIRS/sepsis. As abscess improved, patient was switched to PO antibiotics and discharged on PO cipro with plans to follow up at [facility]. Objective - Vital Signs/Intake and Output Vital Signs (last 24 hours): Temp Pulse Resp BP Pulse Ox 97.4 F L 79 20 106/64 97 03/11/18 16:00 03/11/18 16:00 03/11/18 16:00 03/11/18 16:00 03/11/18 16:00 Intake and Output: 03/11/18 03/11/18 06:59 18:59 Intake Total 400 180 Balance 400 180 - Medications Medications: Current Medications Acetaminophen (Tylenol 325mg Tab) 650 mg PO Q6 PRN PRN Reason: Fever >100.4 F or mild pain Cephalexin Monohydrate (Keflex) 500 mg PO Q6H [facility]; Protocol Stop: 03/17/18 23:59 Last Admin: 03/11/18 15:51 Dose: 500 mg Heparin Sodium (Porcine) (Heparin) 5,000 units SC Q12 [facility] Last Admin: 03/11/18 09:50 Dose: 5,000 units Lactobacillus Acidophilus (Bacid Acidophilus) 1 cap PO BID [facility] Last Admin: 03/11/18 09:50 Dose: 1 cap Pantoprazole Sodium (Protonix Inj) 40 mg IVP DAILY [facility] Last Admin: 03/11/18 09:49 Dose: 40 mg - Labs Labs: 03/11/18 06:48 03/11/18 06:48
--- NOTE | 2018-03-11 16:47 | CP.PCM.DIS ---
Provider - Provider Date of Admission: 03/08/18 18:54 Attending physician: Nate Nunez MD Consults: 03/08/18 20:43 General Surgery Consult Routine Comment: Consulting Provider: Neno Diallo Consulting Physician: Neno Diallo Reason for Consult: periauricular abscess 03/08/18 23:03 ENT [Otolaryngology Consult] Routine Consulting Provider: Terry Turner Consulting Physician: Terry Turner Reason for Consult: R periauricular abscess 03/09/18 14:31 Infectious Disease Consult Routine Comment: Consulting Provider: Maxx Lawler Consulting Physician: Maxx Lawler Reason for Consult: IV antibiotics Time Spent in preparation of Discharge (in minutes): 45 Diagnosis - Discharge Diagnosis (1) Cellulitis and abscess of neck Status: Acute Hospital Course - Lab Results Lab Results: Micro Results 03/08/18 16:12 Blood Blood Culture - Preliminary NO GROWTH AFTER 3 DAYS 03/08/18 14:56 Blood Blood Culture - Preliminary NO GROWTH AFTER 3 DAYS 03/08/18 19:17 Neck Gram Stain - Final 03/08/18 19:17 Neck Wound Culture - Final Staphylococcus Aureus 03/08/18 14:56 Neck Gram Stain - Final 03/08/18 14:56 Neck Wound Culture - Final Staphylococcus Aureus Most Recent Lab Values WBC 7.8 K/uL (4.8-10.8) 03/11/18 06:48 RBC 4.79 Mil/uL (4.40-5.90) 03/11/18 06:48 Hgb 14.3 g/dL (12.0-18.0) 03/11/18 06:48 Hct 42.1 % (35.0-51.0) 03/11/18 06:48 MCV 87.9 fL (80.0-94.0) 03/11/18 06:48 MCH 29.9 pg (27.0-31.0) 03/11/18 06:48 MCHC 34.0 g/dL (33.0-37.0) 03/11/18 06:48 RDW 14.1 % (11.5-14.5) 03/11/18 06:48 Plt Count 315 K/uL (130-400) 03/11/18 06:48 MPV 9.3 fL (7.2-11.7) 03/11/18 06:48 Neut % (Auto) 66.0 % (50.0-75.0) 03/11/18 06:48 Lymph % (Auto) 21.7 % (20.0-40.0) 03/11/18 06:48 [place] % (Auto) 6.8 % (0.0-10.0) 03/11/18 06:48 Eos % (Auto) 4.8 % (0.0-4.0) H 03/11/18 06:48 Baso % (Auto) 0.7 % (0.0-2.0) 03/11/18 06:48 Neut # (Auto) 5.1 K/uL (1.8-7.0) 03/11/18 06:48 Lymph # (Auto) 1.7 K/uL (1.0-4.3) 03/11/18 06:48 [place] # (Auto) 0.5 K/uL (0.0-0.8) 03/11/18 06:48 Eos # (Auto) 0.4 K/uL (0.0-0.7) 03/11/18 06:48 Baso # (Auto) 0.1 K/uL (0.0-0.2) 03/11/18 06:48 Sodium 138 mmol/L (132-148) 03/11/18 06:48 Potassium 4.6 mmol/L (3.6-5.2) 03/11/18 06:48 Chloride 104 mmol/L (98-107) 03/11/18 06:48 Carbon Dioxide 27 mmol/L (22-30) 03/11/18 06:48 Anion Gap 11 (10-20) 03/11/18 06:48 BUN 14 mg/dL (9-20) 03/11/18 06:48 Creatinine 1.0 mg/dL (0.8-1.5) 03/11/18 06:48 Est GFR ( Amer) > 60 03/11/18 06:48 Est GFR (Non-Af Amer) > 60 03/11/18 06:48 POC Glucose (mg/dL) 89 mg/dL (65-110) 03/08/18 14:32 Random Glucose 136 mg/dL (75-110) H 03/11/18 06:48 Calcium 8.7 mg/dl (8.6-10.4) 03/11/18 06:48 Phosphorus 4.0 mg/dL (2.5-4.5) 03/11/18 06:48 Magnesium 2.0 mg/dL (1.6-2.3) 03/11/18 06:48 Total Bilirubin 0.3 mg/dL (0.2-1.3) 03/11/18 06:48 AST 21 U/L (17-59) 03/11/18 06:48 ALT 24 U/L (21-72) 03/11/18 06:48 Alkaline Phosphatase 106 U/L (38-126) 03/11/18 06:48 Total Protein 7.0 g/dL (6.3-8.3) 03/11/18 06:48 Albumin 3.7 g/dL (3.5-5.0) 03/11/18 06:48 Globulin 3.3 gm/dL (2.2-3.9) 03/11/18 06:48 Albumin/Globulin Ratio 1.1 (1.0-2.1) 03/11/18 06:48 Urine Color Straw (YELLOW) 03/10/18 19:25 Urine Clarity Clear (Clear) 03/10/18 19:25 Urine pH 5.0 (5.0-8.0) 03/10/18 19:25 Ur Specific [place] 1.013 (1.003-1.030) 03/10/18 19:25 Urine Protein Negative mg/dL (NEGATIVE) 03/10/18 19:25 Urine Glucose (UA) Normal mg/dL (Normal) 03/10/18 19:25 Urine Ketones Negative mg/dL (NEGATIVE) 03/10/18 19:25 Urine Blood Negative (NEGATIVE) 03/10/18 19:25 Urine Nitrate Negative (NEGATIVE) 03/10/18 19:25 Urine Bilirubin Negative (NEGATIVE) 03/10/18 19:25 Urine Urobilinogen Normal mg/dL (0.2-1.0) 03/10/18 19:25 Ur Leukocyte Esterase Neg Joao/uL (Negative) 03/10/18 19:25 Urine WBC (Auto) < 1 /hpf (0-5) 03/10/18 19:25 - Hospital Course Hospital Course: PGY-[address] Mascorro Initial HPI: Patient is a 52 yo male with no known PMH who presents who a R facial abscess. Patient states that he noticed a fluid-filled bump at the angle of his R jaw on Saturday. He pricked it open with his nail. 2 days ago, he started feeling a burning sensation and squeezed the bump, which had grown significantly in size over the week. Beige odorless discharge came out. The patient describes significant pain, and he has been unable to lay down or touch the R side of his face since yesterday. Patient states this is the first time he has had anything like this. Last time he saw a doctor was in 2010. He denies fevers and chills. He denies LEES, trouble with chewing or swallowing, tooth pain, hearing changes or tinnitus. Hospital Course: Patient was admitted to [facility] for management of a R-sided facial abscess. [place] scan ordered to evaluate for lympadenopathy was negative. While in hospital, patient was treated on Meropenem. Over a couple of days, abscess showed significant improvement. Surgery was consulted and helped with wound care on this case, however patient did not require an I and D. Continued with daily dressing changes. Patient never spiked any fevers or showed any signs of SIRS/sepsis. As abscess improved, patient was switched to PO antibiotics and discharged on PO cipro with plans to follow up at [facility]. Imaging: - CT neck soft tissue: Moderate bilateral jugular digastric and right greater than left posterior triangle lymphadenopathy appreciated. Minimal right supraclavicular fossa lymphadenopathy. Lymphadenopathy is manifest not by grossly enlarged lymph nodes by numerous small lymph nodes with the largest measuring only 1.5 cm in the right periparotid space. - CT chest/abd/pelvis 03/10 - No acute findings. No evidence of adenopathy. Discharge Exam - Head Exam Head Exam: NORMOCEPHALIC Additional comments: R-sided facial abscess draining purulent fluid. Continues to decrease in size. No surrounding erythema. Dressings c/d/i - Eye Exam Eye Exam: EOMI, Normal appearance Pupil Exam: NORMAL ACCOMODATION - ENT Exam ENT Exam: Mucous Membranes Moist - Respiratory Exam Respiratory Exam: Clear to PA & Lateral, NORMAL BREATHING PATTERN. absent: Rhonchi, Wheezes - Cardiovascular Exam Cardiovascular Exam: REGULAR RHYTHM, +S1, +S2 - GI/Abdominal Exam GI & Abdominal Exam: Normal Bowel Sounds. absent: Soft, Tenderness - Extremities Exam Extremities exam: normal inspection - Neurological Exam Neurological exam: Alert, CN II-XII Intact, Oriented x3 - Psychiatric Exam Psychiatric exam: Normal Affect, Normal Mood - Skin Skin Exam: Dry, Intact Discharge Plan - Discharge Medications Prescriptions: Clindamycin [Cleocin] 300 mg PO TID #30 cap - Follow Up Plan Condition: FAIR Disposition: HOME/ ROUTINE Instructions: Clindamycin (Systemic), Cellulitis (Skin Infection), Adult (DC) Additional Instructions: Patient is cleared for discharge per Dr. Mascorro. Please take the following medications as prescribed: Clindamycin 300 mg one tab by mouth three times per day for 10 days Please follow up with the [facility] [place] within 7-10 days Please return to ED if symptoms recur or worsen. Referrals: Cheyenne Marie MD [Staff Provider] -
== END 2018-03-11 19:35 | disposition home or self-care (01) | DRG 383 ==
LOC: C.ER 14:02 → C.9E 18:54 → C.3T 20:14
PROVIDERS: ADMIT Internal Medicine; ATTEND Internal Medicine
DX: L02.01 Cutaneous abscess of face (principal); L02.11 Cutaneous abscess of neck; L03.221 Cellulitis of neck; H60.01 Abscess of right external ear; Z83.3 Family history of diabetes mellitus; Z87.891 Personal history of nicotine dependence